=== PATIENT | female | born 1965 ===

== ENCOUNTER 2022-06-21 23:39 | Inpatient (IN) | payer OTHER, SELFPAY ==
[2022-06-22 00:09] VITALS: BP 119/88; PULSE 73; RESP 16; TEMP 36.6; O2SAT 95; BMI 24.1
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
--- NOTE | 2022-06-22 16:49 | HO.PM.IMCN ---
History of Present Illness Data of Consult Service Date: 06/22/22 Requesting physician: Abbie Israel Primary Care Provider: Unknown Physician HPI Reason for consult: medical H&P 57-year-old female with history of hypothyroidism, type 2 diabetes, GERD, and schizoaffective disorder admitted to Psychiatry with consult placed to hospitalist service for medical H and P. The patient is refusing to meet with me at this time Review of Systems Review of Systems: Unable to assess ROS as patient refusing to speak with provider [facility] Medical History Diabetes GERD (gastroesophageal reflux disease) HTN (hypertension) Hypothyroidism Schizoaffective disorder, bipolar type Urinary incontinence Social History Household Members: None Housing: House Do you presently have visiting nurse or other home services: No Patient Tobacco Use Status: Current everyday Tobacco user Tobacco use type: Cigarette Cigarette Packs Per Day: 1 Cigarettes Per Day: 20.0 Years Smoked: unknown Smoked in Last 30 Days: Yes e-Cigarette/Vaping Use: Currently Using Patient Interested in Nicotine Replacement: Yes Patient Given Instructions on How to Stop Smoking: Yes Date Education Initiated: 06/22/22 Second Hand Smoke Exposure: No Use of substances other than those prescribed or required for medical reasons: Unable to respond Currently Displaying Signs/Symptoms of Drug Intoxication Withdrawal: No Have you been hit, kicked, punched, or otherwise hurt by someone within the past year? If so, by whom?: No Do you feel safe in your current relationship?: No Current Relationship Is there a partner from a previous relationship who is making you feel unsafe now?: No Are you made to feel afraid or neglected: No Spiritual Healthcare Practices: N/A Nondenominational Healthcare Practices: N/A Cultural Healthcare Practices: N/A Advance Directives: No Advance Directives Information Provided: No Do you have thoughts of harming others: None Do you have a plan to hurt others: No Plan Recently lost weight without trying: No How much weight loss: Not applicable Eating poorly because of decreased appetite: No Nutrition screen score: 0 Nutrition Risks: No Nutritional Risk Patient : No : No Poor oral hygiene: No service: No Sexual orientation: Straight/Heterosexual Meds Allergies Allergy/AdvReac Type Severity Reaction Status Date / Time No Known Allergies Allergy Verified 06/22/22 00:08 Active Medications: Current Medications Acetaminophen (Acetaminophen 325 Mg Tablet) 650 mg PO Q6H PRN PRN Reason: Headache/Pain Mild Scale (1-3) Al Hydroxide/Mg Hydroxide (Magnesium Hydrox/Alum Hydrox 30 Ml Oral.Susp) 30 ml PO Q6H PRN PRN Reason: Heartburn/Nausea Amlodipine Besylate (Amlodipine Besylate 10 Mg Tablet) 10 mg PO DAILY [facility]; Protocol Aspirin (Aspirin Enteric Coated 81 Mg Tablet.) 81 mg PO DAILY [facility] Atorvastatin Calcium (Atorvastatin Calcium 20 Mg Tablet) 20 mg PO BEDTIME [facility] Docusate Sodium (Docusate Sodium 100 Mg Capsule) 100 mg PO BID [facility] Glucose (Glucose Gel 15 Gm Gel..Gram.) 15 gm PO Q15M PRN; Protocol PRN Reason: per Hypoglycemia Standing Ord. Hydroxyzine HCl (Hydroxyzine Hcl 25 Mg Tablet) 25 mg PO Q6H PRN PRN Reason: Anxiety Dextrose (D10) 250 mls @ 750 mls/hr IV Q15M PRN; Protocol PRN Reason: per Hypoglycemia Standing Ord. Insulin Human Lispro (Insulin Lispro 100 Unit/Ml 3 Ml Vial) 0 unit SUBCUT QIDACHS [facility]; Protocol Levothyroxine Sodium (Levothyroxine Sodium 50 Mcg Tablet) 50 mcg PO DAILY@0600 [facility] Lorazepam (Lorazepam 1 Mg Tablet) 1 mg PO Q4H PRN PRN Reason: sx of catatonia, agitation Magnesium Hydroxide (Milk Of Magnesia 30 Ml Oral.Susp) 30 ml PO DAILY PRN PRN Reason: Constipation Metformin HCl (Metformin Hcl 850 Mg Tablet) 850 mg PO BEDTIME [facility] Metoprolol Tartrate (Metoprolol Tartrate 12.5 Mg Halftab) 12.5 mg PO BID [facility]; Protocol Multivitamins/Vitamin C (Multivitamin Tablet) 1 tab PO DAILY [facility] Nicotine Polacrilex (Nicotine Polacrilex 2 Mg Gum) 4 mg BUCCAL Q2H PRN PRN Reason: Nicotine Cravings Olanzapine (Olanzapine 7.5 Mg Tablet) 15 mg PO BEDTIME [facility] Olanzapine (Olanzapine 5 Mg Tablet) 5 mg PO BID PRN PRN Reason: psychosis, agitation Omeprazole (Omeprazole 20 Mg Capsule.) 20 mg PO DAILY@0630 [facility] Trazodone HCl (Trazodone Hcl 50 Mg Tablet) 50 mg PO BEDTIME MRX1 PRN PRN Reason: Insomnia Home Medications Medication Instructions Recorded Confirmed Last Taken Type No Known Home Meds 06/22/22 06/22/22 Unknown History Physical Exam Vital Signs and Narrative: Vital Signs: Last Vital Signs Temp 97.8 F 06/22/22 00:09 Pulse 73 06/22/22 00:09 Resp 16 06/22/22 00:09 BP 119/88 06/22/22 00:09 Pulse Ox 95 06/22/22 00:09 O2 Del Method Room Air 06/22/22 00:09 BMI result Body Mass Index 24.1 Pt refusing to speak with provider or participate in exam Assessment and Plan (1) Routine medical exam: Status: Acute Plan 57-year-old female with history of hypothyroidism, type 2 diabetes, GERD, and schizoaffective disorder admitted to Psychiatry with consult placed to hospitalist service for medical H and P. The patient is refusing to meet with me at this time #Mood disorder -plan per psychiatry #Type 2 diabetes -POC glucose -assess Hgb A1c as ordered -humalog on sliding scale -continue po meds -diabetic diet #HTN- reasonably controlled -continue amlodipine -monitor bp #GERD -continue ppi Thank you for allowing me to participate in this consult. Signing off at this time. Please do not hesitate to call for further questions. Time Spent With Patient Time: Total time managing care of this patient today ____ minutes.
[2022-06-22] MEDS: Magnesium Hydrox/Alum Hydrox 30 ML ORAL.SUSP PO (20:38)
--- NOTE | 2022-06-22 20:49 | PC.NURSE ---
Pt refused 1630 and HS POC. Pt refused 1800 vital signs. Pt refused nighttime medications.
--- NOTE | 2022-06-23 08:13 | PC.NURSE ---
Pt refused AM labs as well as AM POC
--- NOTE | 2022-06-23 09:16 | PC.NURSE ---
Pt refused all medications and vital signs as well as assessments. MD andrade
--- NOTE | 2022-06-23 11:27 | PC.NURSE ---
Pt refused urine drug screen with TW.
--- NOTE | 2022-06-23 16:34 | PC.NURSE ---
pt refused POC
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
[2022-06-23] MEDS: Docusate Sodium 100 MG CAPSULE PO (19:42)
[2022-06-23] MEDS: OLANZapine 7.5 MG TABLET 15 MG PO (19:42)
[2022-06-23] MEDS: Atorvastatin Calcium 20 MG TABLET PO (19:43)
[2022-06-23] MEDS: metFORMIN HCl 850 MG TABLET PO (19:43)
--- NOTE | 2022-06-24 08:37 | PC.NURSE ---
PT refused lab draw - provider notified
--- NOTE | 2022-06-24 08:38 | PC.NURSE ---
PT refused AM POC
--- NOTE | 2022-06-24 09:13 | PC.NURSE ---
PT refused all morning meds, continues to be malodorous- refusing ADLs.
--- NOTE | 2022-06-24 10:03 | P.PNPSI_ITS ---
Subjective Subjective Date of Service: 06/24/22 Reason For Visit: Schizoaffective Subjective Notes: Section 7 Healthcare Proxy: No Guardianship: No Medical Problems Affecting Mental Status: No Interim History: Refusing of interventions. Dismissive when attempting to discuss her care, reports feeling disrespected if we attempt to gather history, discuss plan of care, so she may approach to d iscuss care at her discretion to decrease feelings of disrespect. Section VII filed as she is refusing. No JEFFERY allowed for collateral contacts. Hygiene is very poor. Pt is not allowed in the kitchen or in group due to her condition at this time. She is aware of this and is asked to shower and wash clothing. Assistance offered which she refuses. Per team report pt has a history of guardianship and Michel guardianship with [facility], however, this has lapsed. Pt reports no recall in signing conditional voluntary, thus Section VII. Medication Compliance: No Side effects from medications: No Attending Groups: No Review of Systems Acute medical concerns: No Medical Review of Systems: unchanged Mental Status Exam Mental Status Exam Patient Appearance: Fatigued, Disheveled and Unkempt Patient Orientation: Person Level of Consciousness: Awake and Alert Patient Behavior: Guarded, Suspicious, Fearful, Resistive to Care, Avoidant, Fatigued, Distractible, Isolative, Good Eye Contact and Uncooperative Mood Description: Hostile Affect Description: Hostile Patient Cognition Impaired: No Ability to Follow Directions: Poor Speech Pattern: Spontaneous Speech Memory Description: Remote Impaired and Episodic Impaired Delusions: Paranoid Ideation Perceptual Disturbances: Derealization Thought Process: Distracted and Rumination Thought Content: positive for Circumstantial, positive for Perseveration, positive for Poverty of Content and positive for Evasive Depressive Symptoms: Increased Irritability and Sleeping More Than Usual Abnormal Motor Activity Signs and Symptoms: Agitation Judgement: Poor Diagnostics Vital Signs (24Hr): BMI result Body Mass Index 24.1 Medications Medications Current Medications Acetaminophen (Acetaminophen 325 Mg Tablet) 650 mg PO Q6H PRN PRN Reason: Headache/Pain Mild Scale (1-3) Al Hydroxide/Mg Hydroxide (Magnesium Hydrox/Alum Hydrox 30 Ml Oral.Susp) 30 ml PO Q6H PRN PRN Reason: Heartburn/Nausea Last Admin: 06/22/22 20:38 Dose: 30 ml Amlodipine Besylate (Amlodipine Besylate 10 Mg Tablet) 10 mg PO DAILY [facility]; Protocol Last Admin: 06/24/22 09:13 Dose: Not Given Aspirin (Aspirin Enteric Coated 81 Mg Tablet.Dr) 81 mg PO DAILY [facility] [place] Last Admin: 06/24/22 09:13 Dose: Not Given Atorvastatin Calcium (Atorvastatin Calcium 20 Mg Tablet) 20 mg PO BEDTIME [facility] [place] Last Admin: 06/23/22 19:43 Dose: 20 mg Docusate Sodium (Docusate Sodium 100 Mg Capsule) 100 mg PO BID [facility] [place] Last Admin: 06/24/22 09:13 Dose: Not Given Glucose (Glucose Gel 15 Gm Gel..Gram.) 15 gm PO Q15M PRN; Protocol PRN Reason: per Hypoglycemia Standing Ord. Hydroxyzine HCl (Hydroxyzine Hcl 25 Mg Tablet) 25 mg PO Q6H PRN PRN Reason: Anxiety Dextrose (D10) 250 mls @ 750 mls/hr IV Q15M PRN; Protocol PRN Reason: per Hypoglycemia Standing Ord. Insulin Human Lispro (Insulin Lispro 100 Unit/Ml 3 Ml Vial) 0 unit SUBCUT QIDACHS [facility] [place]; Protocol Last Admin: 06/24/22 09:12 Dose: Not Given Levothyroxine Sodium (Levothyroxine Sodium 50 Mcg Tablet) 50 mcg PO DAILY@0600 [facility] Last Admin: 06/24/22 09:12 Dose: Not Given Lorazepam (Lorazepam 1 Mg Tablet) 1 mg PO Q4H PRN PRN Reason: sx of catatonia, agitation Magnesium Hydroxide (Milk Of Magnesia 30 Ml Oral.Susp) 30 ml PO DAILY PRN PRN Reason: Constipation Metformin HCl (Metformin Hcl 850 Mg Tablet) 850 mg PO BEDTIME [facility] [place] Last Admin: 06/23/22 19:43 Dose: 850 mg Metoprolol Tartrate (Metoprolol Tartrate 12.5 Mg Halftab) 12.5 mg PO BID [facility] [place]; Protocol Last Admin: 06/24/22 09:13 Dose: Not Given Multivitamins/Vitamin C (Multivitamin Tablet) 1 tab PO DAILY [facility] Last Admin: 06/24/22 09:13 Dose: Not Given Nicotine Polacrilex (Nicotine Polacrilex 2 Mg Gum) 4 mg BUCCAL Q2H PRN PRN Reason: Nicotine Cravings Olanzapine (Olanzapine 7.5 Mg Tablet) 15 mg PO BEDTIME [facility] Last Admin: 06/23/22 19:42 Dose: 15 mg Olanzapine (Olanzapine 5 Mg Tablet) 5 mg PO BID PRN PRN Reason: psychosis, agitation Omeprazole (Omeprazole 20 Mg Capsule.Dr) 20 mg PO DAILY@0630 [facility] Last Admin: 06/24/22 09:12 Dose: Not Given Trazodone HCl (Trazodone Hcl 50 Mg Tablet) 50 mg PO BEDTIME MRX1 PRN PRN Reason: Insomnia Allergies Allergies Allergy/AdvReac Type Severity Reaction Status Date / Time No Known Allergies Allergy Verified 06/22/22 00:08 Assessment & Plan Assessment & Plan (1) Schizoaffective disorder, bipolar type: Status: Acute Code(s): F25.0 - Schizoaffective disorder, bipolar type Assessment and Plan: 06/24/22: Section VII filed. Attempt alliance. Plan 57-year-old female with history of hypothyroidism, type 2 diabetes, GERD, and schizoaffective disorder admitted to Psychiatry with consult placed to hospitalist service for medical H and P. The patient is refusing to meet with me at this time #Mood disorder -plan per psychiatry #Type 2 diabetes -POC glucose -assess Hgb A1c as ordered -humalog on sliding scale -continue po meds -diabetic diet #HTN- reasonably controlled -continue amlodipine -monitor bp #GERD -continue ppi Thank you for allowing me to participate in this consult. Signing off at this time. Please do not hesitate to call for further questions. Informed Consent: does not understand and further education needed Reason for continued inpatient stay Substantial Risk for: rapid decompensation Time Spent With Patient Time: Total time managing care of this patient today ____ minutes.
--- NOTE | 2022-06-24 11:55 | P.PNPSI_ITS ---
Subjective Subjective Reason For Visit: Schizoaffective Diagnostics Vital Signs (24Hr): BMI result Body Mass Index 24.1 Medications Medications Current Medications Acetaminophen (Acetaminophen 325 Mg Tablet) 650 mg PO Q6H PRN PRN Reason: Headache/Pain Mild Scale (1-3) Al Hydroxide/Mg Hydroxide (Magnesium Hydrox/Alum Hydrox 30 Ml Oral.Susp) 30 ml PO Q6H PRN PRN Reason: Heartburn/Nausea Last Admin: 06/22/22 20:38 Dose: 30 ml Amlodipine Besylate (Amlodipine Besylate 10 Mg Tablet) 10 mg PO DAILY [facility]; Protocol Last Admin: 06/24/22 09:13 Dose: Not Given Aspirin (Aspirin Enteric Coated 81 Mg Tablet.Dr) 81 mg PO DAILY [facility] Last Admin: 06/24/22 09:13 Dose: Not Given Atorvastatin Calcium (Atorvastatin Calcium 20 Mg Tablet) 20 mg PO BEDTIME [facility] Last Admin: 06/23/22 19:43 Dose: 20 mg Docusate Sodium (Docusate Sodium 100 Mg Capsule) 100 mg PO BID [facility] Last Admin: 06/24/22 09:13 Dose: Not Given Glucose (Glucose Gel 15 Gm Gel..Gram.) 15 gm PO Q15M PRN; Protocol PRN Reason: per Hypoglycemia Standing Ord. Hydroxyzine HCl (Hydroxyzine Hcl 25 Mg Tablet) 25 mg PO Q6H PRN PRN Reason: Anxiety Dextrose (D10) 250 mls @ 750 mls/hr IV Q15M PRN; Protocol PRN Reason: per Hypoglycemia Standing Ord. Insulin Human Lispro (Insulin Lispro 100 Unit/Ml 3 Ml Vial) 0 unit SUBCUT QIDACHS [facility]; Protocol Last Admin: 06/24/22 09:12 Dose: Not Given Levothyroxine Sodium (Levothyroxine Sodium 50 Mcg Tablet) 50 mcg PO DAILY@0600 [facility] Last Admin: 06/24/22 09:12 Dose: Not Given Lorazepam (Lorazepam 1 Mg Tablet) 1 mg PO Q4H PRN PRN Reason: sx of catatonia, agitation Magnesium Hydroxide (Milk Of Magnesia 30 Ml Oral.Susp) 30 ml PO DAILY PRN PRN Reason: Constipation Metformin HCl (Metformin Hcl 850 Mg Tablet) 850 mg PO BEDTIME [facility] Last Admin: 06/23/22 19:43 Dose: 850 mg Metoprolol Tartrate (Metoprolol Tartrate 12.5 Mg Halftab) 12.5 mg PO BID [facility]; Protocol Last Admin: 06/24/22 09:13 Dose: Not Given Multivitamins/Vitamin C (Multivitamin Tablet) 1 tab PO DAILY [facility] Last Admin: 06/24/22 09:13 Dose: Not Given Nicotine Polacrilex (Nicotine Polacrilex 2 Mg Gum) 4 mg BUCCAL Q2H PRN PRN Reason: Nicotine Cravings Olanzapine (Olanzapine 7.5 Mg Tablet) 15 mg PO BEDTIME [facility] Last Admin: 06/23/22 19:42 Dose: 15 mg Olanzapine (Olanzapine 5 Mg Tablet) 5 mg PO BID PRN PRN Reason: psychosis, agitation Omeprazole (Omeprazole 20 Mg Capsule.Dr) 20 mg PO DAILY@0630 [facility] Last Admin: 06/24/22 09:12 Dose: Not Given Trazodone HCl (Trazodone Hcl 50 Mg Tablet) 50 mg PO BEDTIME MRX1 PRN PRN Reason: Insomnia Allergies Allergies Allergy/AdvReac Type Severity Reaction Status Date / Time No Known Allergies Allergy Verified 06/22/22 00:08 Assessment & Plan Assessment & Plan (1) Routine medical exam: Status: Acute Code(s): Z00.00 - Encounter for general adult medical examination without abnormal findings Plan 57-year-old female with history of hypothyroidism, type 2 diabetes, GERD, and schizoaffective disorder admitted to Psychiatry with consult placed to hospitalist service for medical H and P. The patient is refusing to meet with me at this time #Mood disorder -plan per psychiatry #Type 2 diabetes -POC glucose -assess Hgb A1c as ordered -humalog on sliding scale -continue po meds -diabetic diet #HTN- reasonably controlled -continue amlodipine -monitor bp #GERD -continue ppi Thank you for allowing me to participate in this consult. Signing off at this time. Please do not hesitate to call for further questions. Time Spent With Patient Time: Total time managing care of this patient today ____ minutes.
[2022-06-24] MEDS: Metoprolol Tartrate 12.5 MG HALFTAB PO (20:01)
[2022-06-24] MEDS: Docusate Sodium 100 MG CAPSULE PO (20:02)
[2022-06-24] MEDS: OLANZapine 7.5 MG TABLET 15 MG PO (20:02)
[2022-06-24] MEDS: metFORMIN HCl 850 MG TABLET PO (20:02)
[2022-06-24] MEDS: Atorvastatin Calcium 20 MG TABLET PO (20:05)
[2022-06-24] MEDS: traZODone HCL 50 MG TABLET PO (22:35)
[2022-06-25 06:00] VITALS: RESP 16
[2022-06-25] MEDS: Multivitamin TABLET 1 TAB PO (09:40)
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
[2022-06-25] MEDS: Metoprolol Tartrate 12.5 MG HALFTAB PO (20:16)
[2022-06-25] MEDS: LORazepam 1 MG TABLET PO (20:16)
[2022-06-25] MEDS: Atorvastatin Calcium 20 MG TABLET PO (20:16)
[2022-06-25] MEDS: metFORMIN HCl 850 MG TABLET PO (20:16)
[2022-06-25] MEDS: Docusate Sodium 100 MG CAPSULE PO (20:16)
[2022-06-25] MEDS: OLANZapine 7.5 MG TABLET 15 MG PO (20:16)
[2022-06-25 20:34] VITALS: RESP 16
--- NOTE | 2022-06-25 21:22 | PC.NURSE ---
PT refused POC at dinner time but did take evening medication when presented to her, continues to refuse ADLs.
[2022-06-26] MEDS: Levothyroxine Sodium 50 MCG TABLET PO (08:40)
[2022-06-26] MEDS: Multivitamin TABLET 1 TAB PO (08:40)
[2022-06-26] MEDS: Aspirin Enteric Coated 81 MG TABLET.DR PO (08:41)
[2022-06-26] MEDS: Docusate Sodium 100 MG CAPSULE PO ×2 (08:41→18:27)
[2022-06-26] MEDS: Omeprazole 20 MG CAPSULE.DR PO (08:41)
[2022-06-26 08:59] VITALS: RESP 16
--- NOTE | 2022-06-26 09:05 | PC.NURSE ---
Pt. refuses lab work
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
[2022-06-26] MEDS: OLANZapine 7.5 MG TABLET 15 MG PO (18:27)
[2022-06-26] MEDS: LORazepam 1 MG TABLET PO (18:28)
[2022-06-26] MEDS: metFORMIN HCl 850 MG TABLET PO (18:28)
[2022-06-26] MEDS: Atorvastatin Calcium 20 MG TABLET PO (18:28)
[2022-06-27] MEDS: Omeprazole 20 MG CAPSULE.DR PO (08:06)
[2022-06-27] MEDS: Docusate Sodium 100 MG CAPSULE PO ×2 (08:06→18:31)
[2022-06-27] MEDS: Aspirin Enteric Coated 81 MG TABLET.DR PO (08:06)
[2022-06-27] MEDS: Multivitamin TABLET 1 TAB PO (08:07)
[2022-06-27] MEDS: Levothyroxine Sodium 50 MCG TABLET PO (08:07)
[2022-06-27] MEDS: LORazepam 1 MG TABLET PO ×2 (08:07→18:31)
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
--- NOTE | 2022-06-27 14:52 | PC.NURSE ---
this chief writer set up the shower and strongly encouraged her to do so. she checked out the handcapped shower with this chief writer. showered. washed herself appropriately. bit more verbal. smiled afterwards. ate a snack in the kitchen.
[2022-06-27] MEDS: traZODone HCL 50 MG TABLET PO (18:31)
[2022-06-27] MEDS: Atorvastatin Calcium 20 MG TABLET PO (18:31)
[2022-06-27] MEDS: OLANZapine 7.5 MG TABLET 15 MG PO (18:31)
[2022-06-27] MEDS: metFORMIN HCl 850 MG TABLET PO (18:31)
[2022-06-28] MEDS: Levothyroxine Sodium 50 MCG TABLET PO (05:49)
[2022-06-28] MEDS: Omeprazole 20 MG CAPSULE.DR PO (05:50)
[2022-06-28 06:00] VITALS: RESP 16
[2022-06-28] MEDS: Docusate Sodium 100 MG CAPSULE PO ×2 (09:18→19:48)
[2022-06-28] MEDS: OLANZapine 5 MG TABLET PO (09:18)
[2022-06-28] MEDS: LORazepam 1 MG TABLET PO ×2 (09:18→19:49)
[2022-06-28] MEDS: Multivitamin TABLET 1 TAB PO (09:18)
[2022-06-28] MEDS: Aspirin Enteric Coated 81 MG TABLET.DR PO (09:18)
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
[2022-06-28] MEDS: Acetaminophen 325 MG TABLET 650 MG PO (11:38)
[2022-06-28 18:00] VITALS: RESP 16
[2022-06-28] MEDS: Atorvastatin Calcium 20 MG TABLET PO (19:48)
[2022-06-28] MEDS: metFORMIN HCl 850 MG TABLET PO (19:48)
[2022-06-28] MEDS: OLANZapine 7.5 MG TABLET 15 MG PO (19:49)
[2022-06-29] MEDS: LORazepam 1 MG TABLET PO (08:10)
[2022-06-29] MEDS: Aspirin Enteric Coated 81 MG TABLET.DR PO (08:10)
[2022-06-29] MEDS: OLANZapine 5 MG TABLET PO (08:10)
[2022-06-29] MEDS: Multivitamin TABLET 1 TAB PO (08:10)
[2022-06-29] MEDS: Levothyroxine Sodium 50 MCG TABLET PO (08:10)
[2022-06-29] MEDS: Docusate Sodium 100 MG CAPSULE PO (08:10)
[2022-06-29] MEDS: Omeprazole 20 MG CAPSULE.DR PO (08:10)
[2022-06-29 08:14] VITALS: RESP 15
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
--- NOTE | 2022-06-29 22:33 | PC.NURSE ---
Patient refused all HS medications, POC and vital signs to be taken.
[2022-06-30] MEDS: Levothyroxine Sodium 50 MCG TABLET PO (06:18)
[2022-06-30] MEDS: Omeprazole 20 MG CAPSULE.DR PO (06:18)
[2022-06-30] MEDS: Multivitamin TABLET 1 TAB PO (08:42)
[2022-06-30] MEDS: LORazepam 1 MG TABLET PO ×2 (08:42→18:12)
[2022-06-30] MEDS: Aspirin Enteric Coated 81 MG TABLET.DR PO (08:42)
[2022-06-30] MEDS: OLANZapine 5 MG TABLET PO (08:42)
[2022-06-30] MEDS: Docusate Sodium 100 MG CAPSULE PO ×2 (08:42→18:12)
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
[2022-06-30 15:42] VITALS: RESP 16
[2022-06-30] MEDS: Atorvastatin Calcium 20 MG TABLET PO (18:12)
[2022-06-30] MEDS: metFORMIN HCl 850 MG TABLET PO (18:12)
[2022-07-01] MEDS: Levothyroxine Sodium 50 MCG TABLET PO (04:14)
[2022-07-01] MEDS: Omeprazole 20 MG CAPSULE.DR PO (04:16)
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
[2022-07-01] MEDS: metFORMIN HCl 850 MG TABLET PO (18:18)
[2022-07-01] MEDS: LORazepam 1 MG TABLET PO (18:18)
[2022-07-01] MEDS: OLANZapine 10 MG TABLET 20 MG PO (18:18)
[2022-07-01] MEDS: Atorvastatin Calcium 20 MG TABLET PO (18:18)
[2022-07-01] MEDS: Docusate Sodium 100 MG CAPSULE PO (18:18)
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
--- NOTE | 2022-07-02 09:44 | PC.NURSE ---
PT refuse all AM meds, vital signs and POC today 07/02/22 as well as yesterday 07/01/22. Today states I cant take that, I have only one child I carried to term .
[2022-07-02] MEDS: Atorvastatin Calcium 20 MG TABLET PO (19:06)
[2022-07-02] MEDS: Docusate Sodium 100 MG CAPSULE PO (19:07)
[2022-07-02] MEDS: LORazepam 1 MG TABLET PO (19:07)
[2022-07-02] MEDS: OLANZapine 10 MG TABLET 20 MG PO (19:07)
[2022-07-02] MEDS: Metoprolol Tartrate 12.5 MG HALFTAB PO (19:07)
[2022-07-02] MEDS: metFORMIN HCl 850 MG TABLET PO (19:07)
--- NOTE | 2022-07-03 12:13 | PC.NURSE ---
PT REFUSED VS, POC AND ALL MORNING MEDS. PT INTERESTED in getting haircut, CAW MADE AWRE
--- NOTE | 2022-07-03 14:41 | PC.NURSE ---
PT refused labs 2X, will need to be reordered, CAW aware.
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
[2022-07-04] MEDS: Multivitamin TABLET 1 TAB PO (07:58)
[2022-07-04] MEDS: OLANZapine 5 MG TABLET PO (07:59)
[2022-07-04] MEDS: LORazepam 1 MG TABLET PO ×3 (07:59→20:00)
[2022-07-04] MEDS: Docusate Sodium 100 MG CAPSULE PO ×2 (07:59→20:00)
[2022-07-04] MEDS: Aspirin Enteric Coated 81 MG TABLET.DR PO (07:59)
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
--- NOTE | 2022-07-04 14:27 | PC.NURSE ---
pt refuses vital signs, insulin and poc. dr. billingsley aware.
[2022-07-04] MEDS: OLANZapine 10 MG TABLET 20 MG PO (20:00)
[2022-07-04] MEDS: Atorvastatin Calcium 20 MG TABLET PO (20:01)
[2022-07-04] MEDS: metFORMIN HCl 850 MG TABLET PO (20:01)
--- NOTE | 2022-07-05 11:59 | PC.NURSE ---
PT refused morning meds, POC, and vitals. PT was offered morning meds 3x, replied each time with Later . When this abstract writer approached for the final attempt pt stated you already gave them to me, get the fuck out of here . PT continues with bizarre paranoid behaviors often times staring at this abstract writer and not saying anything for a period of time.
[2022-07-05] MEDS: LORazepam 1 MG TABLET PO (14:41)
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
[2022-07-06] MEDS: Docusate Sodium 100 MG CAPSULE PO (08:06)
[2022-07-06] MEDS: OLANZapine 5 MG TABLET PO (08:06)
[2022-07-06] MEDS: LORazepam 1 MG TABLET PO (08:07)
[2022-07-06] MEDS: Aspirin Enteric Coated 81 MG TABLET.DR PO (08:07)
[2022-07-06] MEDS: Levothyroxine Sodium 50 MCG TABLET PO (08:07)
[2022-07-06] MEDS: Omeprazole 20 MG CAPSULE.DR PO (08:07)
[2022-07-06] MEDS: Multivitamin TABLET 1 TAB PO (08:07)
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
[2022-07-06 17:21] VITALS: BP 170/85; PULSE 95; TEMP 37; O2SAT 96
[2022-07-06] MEDS: Acetaminophen 325 MG TABLET 650 MG PO (20:29)
[2022-07-07] MEDS: Multivitamin TABLET 1 TAB PO (08:04)
[2022-07-07] MEDS: Levothyroxine Sodium 50 MCG TABLET PO (08:04)
[2022-07-07] MEDS: amLODIPine Besylate 10 MG TABLET PO (08:04)
[2022-07-07] MEDS: Omeprazole 20 MG CAPSULE.DR PO (08:04)
[2022-07-07] MEDS: Metoprolol Tartrate 12.5 MG HALFTAB PO ×2 (08:05→20:13)
[2022-07-07] MEDS: Aspirin Enteric Coated 81 MG TABLET.DR PO (08:05)
[2022-07-07] MEDS: Docusate Sodium 100 MG CAPSULE PO ×2 (08:05→20:13)
[2022-07-07] MEDS: LORazepam 1 MG TABLET PO ×3 (08:05→20:14)
[2022-07-07] MEDS: OLANZapine 5 MG TABLET PO (08:05)
[2022-07-07 08:12] VITALS: BP 145/79; PULSE 87; RESP 16; TEMP 36.4; O2SAT 96
--- NOTE | 2022-07-07 13:05 | PC.NURSE ---
pt refused to shower and do poc/insulin coverage.
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
[2022-07-07] MEDS: OLANZapine 10 MG TABLET 30 MG PO (20:13)
[2022-07-07] MEDS: Atorvastatin Calcium 20 MG TABLET PO (20:13)
[2022-07-07] MEDS: metFORMIN HCl 850 MG TABLET PO (20:14)
[2022-07-08] MEDS: amLODIPine Besylate 10 MG TABLET PO (08:12)
[2022-07-08] MEDS: Levothyroxine Sodium 50 MCG TABLET PO (08:12)
[2022-07-08] MEDS: Docusate Sodium 100 MG CAPSULE PO ×2 (08:12→19:34)
[2022-07-08] MEDS: Omeprazole 20 MG CAPSULE.DR PO (08:12)
[2022-07-08] MEDS: Metoprolol Tartrate 12.5 MG HALFTAB PO (08:12)
[2022-07-08] MEDS: LORazepam 1 MG TABLET PO ×3 (08:13→19:34)
[2022-07-08] MEDS: Magnesium Hydrox/Alum Hydrox 30 ML ORAL.SUSP PO (08:22)
[2022-07-08 08:34] VITALS: BP 139/80; PULSE 85; RESP 16; TEMP 37; O2SAT 93
[2022-07-08 09:30] LABS: Creatinine Clr Calc Pharmacy 91.5; Estimated Glomerular Filt Rate > 60
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
[2022-07-08] MEDS: OLANZapine 10 MG TABLET 30 MG PO (19:34)
[2022-07-08] MEDS: metFORMIN HCl 850 MG TABLET PO (19:34)
[2022-07-08] MEDS: Atorvastatin Calcium 20 MG TABLET PO (19:34)
[2022-07-09 06:00] VITALS: BP 138/67; PULSE 90; RESP 16; TEMP 36.6; O2SAT 95
[2022-07-09] MEDS: Docusate Sodium 100 MG CAPSULE PO ×2 (07:45→20:42)
[2022-07-09] MEDS: amLODIPine Besylate 10 MG TABLET PO (07:45)
[2022-07-09] MEDS: Levothyroxine Sodium 50 MCG TABLET PO (07:46)
[2022-07-09] MEDS: Omeprazole 20 MG CAPSULE.DR PO (07:46)
[2022-07-09] MEDS: Metoprolol Tartrate 12.5 MG HALFTAB PO (07:46)
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
[2022-07-09] MEDS: Atorvastatin Calcium 20 MG TABLET PO (20:41)
[2022-07-09] MEDS: OLANZapine 10 MG TABLET 30 MG PO (20:41)
[2022-07-09] MEDS: LORazepam 1 MG TABLET PO (20:42)
[2022-07-09] MEDS: metFORMIN HCl 850 MG TABLET PO (20:42)
[2022-07-10] MEDS: Omeprazole 20 MG CAPSULE.DR PO (08:20)
[2022-07-10] MEDS: Docusate Sodium 100 MG CAPSULE PO ×2 (08:20→18:10)
[2022-07-10] MEDS: Levothyroxine Sodium 50 MCG TABLET PO (08:22)
[2022-07-10] MEDS: OLANZapine 10 MG TABLET 30 MG PO (18:09)
[2022-07-10] MEDS: Atorvastatin Calcium 20 MG TABLET PO (18:10)
[2022-07-10] MEDS: LORazepam 0.5 MG TABLET PO (18:10)
[2022-07-10] MEDS: metFORMIN HCl 850 MG TABLET PO (18:10)
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
[2022-07-11 06:00] VITALS: RESP 16
[2022-07-11] MEDS: Levothyroxine Sodium 50 MCG TABLET PO (08:07)
[2022-07-11] MEDS: LORazepam 0.5 MG TABLET PO ×2 (08:07→20:00)
[2022-07-11] MEDS: Docusate Sodium 100 MG CAPSULE PO ×2 (08:07→20:00)
[2022-07-11] MEDS: Omeprazole 20 MG CAPSULE.DR PO (08:08)
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
[2022-07-11 17:13] VITALS: RESP 16; TEMP 36.9
[2022-07-11] MEDS: OLANZapine 10 MG TABLET 30 MG PO (20:00)
[2022-07-11] MEDS: Metoprolol Tartrate 12.5 MG HALFTAB PO (20:00)
[2022-07-11] MEDS: Atorvastatin Calcium 20 MG TABLET PO (20:00)
[2022-07-12 06:00] VITALS: RESP 16
[2022-07-12] MEDS: Docusate Sodium 100 MG CAPSULE PO ×2 (09:31→18:11)
[2022-07-12] MEDS: LORazepam 0.5 MG TABLET PO ×2 (09:32→18:11)
[2022-07-12] MEDS: Omeprazole 20 MG CAPSULE.DR PO (09:32)
[2022-07-12] MEDS: Levothyroxine Sodium 50 MCG TABLET PO (09:33)
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
[2022-07-12] MEDS: OLANZapine 5 MG TABLET 25 MG PO (18:10)
[2022-07-12] MEDS: metFORMIN HCl 850 MG TABLET PO (18:11)
[2022-07-12] MEDS: Atorvastatin Calcium 20 MG TABLET PO (18:11)
[2022-07-13] MEDS: Levothyroxine Sodium 50 MCG TABLET PO (05:23)
[2022-07-13] MEDS: Omeprazole 20 MG CAPSULE.DR PO (05:23)
[2022-07-13] MEDS: Docusate Sodium 100 MG CAPSULE PO ×2 (08:52→20:32)
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
[2022-07-13 18:20] LABS: Amphetamine Screen Urine Not Detected (Not Detect); Barbiturates, Urine Not Detected (Not Detect); Benzodiazepines Screen Urine Not Detected (Not Detect); Cannabinoid Screen Urine Not Detected (Not Detect); Cocaine Screen Urine Not Detected (Not Detect); Fentanyl, urine Not Detected (Not Detect); Opiate Screen Urine Not Detected (Not Detect); Phencyclidine Screen Urine Not Detected (Not Detect)
--- NOTE | 2022-07-13 18:48 | PC.NURSE ---
Patient's urine drug screen was collected and processed. Negative result. Shireen Benítez notified via Annabella text.
[2022-07-13] MEDS: OLANZapine 5 MG TABLET 25 MG PO (20:30)
[2022-07-13] MEDS: LORazepam 0.5 MG TABLET PO (20:30)
[2022-07-13] MEDS: metFORMIN HCl 850 MG TABLET PO (20:33)
[2022-07-14 06:00] VITALS: BP 141/89; PULSE 108; RESP 16; TEMP 36.3; O2SAT 93
[2022-07-14] MEDS: Metoprolol Tartrate 12.5 MG HALFTAB PO ×2 (08:16→19:49)
[2022-07-14] MEDS: amLODIPine Besylate 10 MG TABLET PO (08:17)
[2022-07-14] MEDS: LORazepam 0.5 MG TABLET PO ×2 (08:17→19:50)
[2022-07-14] MEDS: Docusate Sodium 100 MG CAPSULE PO ×2 (08:17→19:50)
[2022-07-14] MEDS: Levothyroxine Sodium 50 MCG TABLET PO (08:17)
[2022-07-14] MEDS: Omeprazole 20 MG CAPSULE.DR PO (08:17)
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
--- NOTE | 2022-07-14 14:26 | PC.NURSE ---
asked pt when she was going to let us test her blood sugar and she said never .
[2022-07-14] MEDS: OLANZapine 5 MG TABLET 25 MG PO (19:49)
[2022-07-14] MEDS: Atorvastatin Calcium 20 MG TABLET PO (19:50)
[2022-07-14] MEDS: metFORMIN HCl 850 MG TABLET PO (19:51)
[2022-07-15] MEDS: Omeprazole 20 MG CAPSULE.DR PO (08:10)
[2022-07-15] MEDS: Docusate Sodium 100 MG CAPSULE PO ×2 (08:10→20:00)
[2022-07-15] MEDS: Levothyroxine Sodium 50 MCG TABLET PO (08:10)
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
[2022-07-15] MEDS: OLANZapine 5 MG TABLET 25 MG PO (20:00)
[2022-07-15] MEDS: metFORMIN HCl 850 MG TABLET PO (20:00)
[2022-07-15] MEDS: Atorvastatin Calcium 20 MG TABLET PO (20:01)
[2022-07-16] MEDS: Levothyroxine Sodium 50 MCG TABLET PO (05:36)
[2022-07-16] MEDS: Omeprazole 20 MG CAPSULE.DR PO (05:36)
[2022-07-16] MEDS: Docusate Sodium 100 MG CAPSULE PO ×2 (08:42→20:44)
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
[2022-07-16 18:00] VITALS: BP 134/80; PULSE 91; RESP 18; TEMP 36.3; O2SAT 96
[2022-07-16] MEDS: metFORMIN HCl 850 MG TABLET PO (20:44)
[2022-07-16] MEDS: Atorvastatin Calcium 20 MG TABLET PO (20:44)
[2022-07-16] MEDS: OLANZapine 5 MG TABLET 25 MG PO (20:44)
[2022-07-17] MEDS: Omeprazole 20 MG CAPSULE.DR PO (08:36)
[2022-07-17] MEDS: Docusate Sodium 100 MG CAPSULE PO ×2 (08:36→20:43)
[2022-07-17] MEDS: Levothyroxine Sodium 50 MCG TABLET PO (08:37)
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
[2022-07-17] MEDS: Throat Lozenge, Medicated LOZENGE 1 LOZENGE MUCOUS MEM (13:25)
[2022-07-17] MEDS: Metoprolol Tartrate 12.5 MG HALFTAB PO (20:43)
[2022-07-17] MEDS: metFORMIN HCl 850 MG TABLET PO (20:43)
[2022-07-17] MEDS: OLANZapine 5 MG TABLET 25 MG PO (20:43)
[2022-07-17] MEDS: Atorvastatin Calcium 20 MG TABLET PO (20:44)
[2022-07-18] MEDS: Omeprazole 20 MG CAPSULE.DR PO (08:41)
[2022-07-18] MEDS: Docusate Sodium 100 MG CAPSULE PO ×2 (08:41→21:00)
[2022-07-18] MEDS: Levothyroxine Sodium 50 MCG TABLET PO (08:42)
--- NOTE | 2022-07-18 08:58 | PC.NURSE ---
Pt refused AM Creatinine labs
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
[2022-07-18 16:11] VITALS: RESP 16
[2022-07-18] MEDS: OLANZapine 10 MG TABLET 30 MG PO (21:00)
[2022-07-18] MEDS: metFORMIN HCl 850 MG TABLET PO (21:00)
[2022-07-18] MEDS: Atorvastatin Calcium 20 MG TABLET PO (21:00)
[2022-07-19] MEDS: Levothyroxine Sodium 50 MCG TABLET PO (05:07)
[2022-07-19] MEDS: Omeprazole 20 MG CAPSULE.DR PO (05:07)
[2022-07-19 08:45] VITALS: RESP 18
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
[2022-07-19] MEDS: Docusate Sodium 100 MG CAPSULE PO (19:47)
[2022-07-19] MEDS: OLANZapine 10 MG TABLET 30 MG PO (19:47)
[2022-07-19] MEDS: Atorvastatin Calcium 20 MG TABLET PO (19:47)
[2022-07-19] MEDS: metFORMIN HCl 850 MG TABLET PO (19:47)
[2022-07-20] MEDS: Levothyroxine Sodium 50 MCG TABLET PO (06:19)
[2022-07-20] MEDS: Omeprazole 20 MG CAPSULE.DR PO (06:19)
[2022-07-20 08:22] VITALS: RESP 16
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
[2022-07-20] MEDS: Metoprolol Tartrate 12.5 MG HALFTAB PO (19:20)
[2022-07-20] MEDS: metFORMIN HCl 850 MG TABLET PO (19:20)
[2022-07-20] MEDS: Docusate Sodium 100 MG CAPSULE PO (19:21)
[2022-07-20] MEDS: OLANZapine 10 MG TABLET 30 MG PO (19:21)
[2022-07-20] MEDS: Atorvastatin Calcium 20 MG TABLET PO (19:21)
[2022-07-21 07:00] VITALS: BMI 30.8
[2022-07-21] MEDS: Levothyroxine Sodium 50 MCG TABLET PO (08:34)
[2022-07-21] MEDS: Docusate Sodium 100 MG CAPSULE PO ×2 (08:34→19:21)
[2022-07-21] MEDS: Omeprazole 20 MG CAPSULE.DR PO (08:34)
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
--- NOTE | 2022-07-21 12:16 | PC.NURSE ---
Pt refused labs this AM. MD Werner made aware
[2022-07-21 16:52] VITALS: BP 136/82; PULSE 73; RESP 16; TEMP 36.4; O2SAT 97
[2022-07-21] MEDS: LORazepam 1 MG TABLET PO (19:20)
[2022-07-21] MEDS: Metoprolol Tartrate 12.5 MG HALFTAB PO (19:20)
[2022-07-21] MEDS: risperiDONE 1 MG TABLET PO (19:20)
[2022-07-21] MEDS: Atorvastatin Calcium 20 MG TABLET PO (19:21)
[2022-07-21] MEDS: OLANZapine 10 MG TABLET 30 MG PO (19:21)
[2022-07-21] MEDS: metFORMIN HCl 850 MG TABLET PO (19:21)
[2022-07-22] MEDS: Levothyroxine Sodium 50 MCG TABLET PO (08:18)
[2022-07-22] MEDS: Docusate Sodium 100 MG CAPSULE PO ×2 (08:18→19:38)
[2022-07-22] MEDS: risperiDONE 1 MG TABLET PO ×2 (08:18→19:39)
[2022-07-22] MEDS: Omeprazole 20 MG CAPSULE.DR PO (08:18)
[2022-07-22] MEDS: LORazepam 1 MG TABLET PO ×3 (08:19→19:38)
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
[2022-07-22 18:00] VITALS: BP 141/85; PULSE 96; RESP 16; TEMP 36; O2SAT 97
[2022-07-22] MEDS: Metoprolol Tartrate 12.5 MG HALFTAB PO (19:37)
[2022-07-22] MEDS: OLANZapine 10 MG TABLET 30 MG PO (19:38)
[2022-07-22] MEDS: metFORMIN HCl 850 MG TABLET PO (19:38)
[2022-07-22] MEDS: Atorvastatin Calcium 20 MG TABLET PO (19:38)
[2022-07-23] MEDS: Levothyroxine Sodium 50 MCG TABLET PO (06:37)
[2022-07-23] MEDS: Omeprazole 20 MG CAPSULE.DR PO (06:37)
--- NOTE | 2022-07-23 12:26 | PC.NURSE ---
When attempt made to medicate this morning, pt was initially agreeable to take them later. Currently when re-attempting to medicate pt refusing all of her meds. Otto returned to [facility] with witness Jin MORRIS.
[2022-07-23] MEDS: LORazepam 1 MG TABLET PO (12:36)
[2022-07-23] MEDS: risperiDONE 1 MG TABLET PO (12:36)
[2022-07-23] MEDS: Docusate Sodium 100 MG CAPSULE PO (12:37)
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
[2022-07-24] MEDS: Omeprazole 20 MG CAPSULE.DR PO (05:57)
[2022-07-24] MEDS: Levothyroxine Sodium 50 MCG TABLET PO (05:57)
[2022-07-24] MEDS: Metoprolol Tartrate 12.5 MG HALFTAB PO ×2 (09:00→18:24)
[2022-07-24] MEDS: risperiDONE 1 MG TABLET PO ×2 (09:00→18:24)
[2022-07-24] MEDS: LORazepam 1 MG TABLET PO ×2 (09:00→18:24)
[2022-07-24] MEDS: Docusate Sodium 100 MG CAPSULE PO ×2 (09:00→18:24)
[2022-07-24] MEDS: amLODIPine Besylate 10 MG TABLET PO (09:01)
[2022-07-24 09:03] VITALS: BP 144/93; PULSE 86; RESP 16; TEMP 36.4; O2SAT 94
[2022-07-24 15:51] VITALS: BP 121/68; PULSE 92
[2022-07-24 18:23] VITALS: BP 120/70; PULSE 86
[2022-07-24] MEDS: Atorvastatin Calcium 20 MG TABLET PO (18:24)
[2022-07-24] MEDS: metFORMIN HCl 850 MG TABLET PO (18:24)
[2022-07-24] MEDS: OLANZapine 10 MG TABLET 30 MG PO (18:24)
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
[2022-07-25] MEDS: Omeprazole 20 MG CAPSULE.DR PO (05:36)
[2022-07-25] MEDS: Levothyroxine Sodium 50 MCG TABLET PO (05:36)
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
[2022-07-25] MEDS: amLODIPine Besylate 10 MG TABLET PO (10:51)
[2022-07-25] MEDS: LORazepam 1 MG TABLET PO ×3 (10:54→20:30)
[2022-07-25] MEDS: Docusate Sodium 100 MG CAPSULE PO ×2 (10:54→20:31)
[2022-07-25] MEDS: risperiDONE 1 MG TABLET PO (10:55)
[2022-07-25] MEDS: Metoprolol Tartrate 12.5 MG HALFTAB PO ×2 (10:56→20:32)
[2022-07-25] MEDS: risperiDONE 2 MG TABLET PO (20:30)
[2022-07-25] MEDS: OLANZapine 10 MG TABLET 30 MG PO (20:30)
[2022-07-25] MEDS: Atorvastatin Calcium 20 MG TABLET PO (20:31)
[2022-07-25] MEDS: metFORMIN HCl 850 MG TABLET PO (20:31)
[2022-07-25 20:33] VITALS: BP 124/82; PULSE 88; TEMP 36.6; O2SAT 96
[2022-07-26] MEDS: Levothyroxine Sodium 50 MCG TABLET PO (05:23)
[2022-07-26] MEDS: Omeprazole 20 MG CAPSULE.DR PO (05:23)
[2022-07-26] MEDS: Docusate Sodium 100 MG CAPSULE PO ×2 (09:26→21:03)
[2022-07-26] MEDS: LORazepam 1 MG TABLET PO ×3 (09:26→21:04)
[2022-07-26] MEDS: amLODIPine Besylate 10 MG TABLET PO (09:26)
[2022-07-26] MEDS: risperiDONE 1 MG TABLET PO (09:26)
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
[2022-07-26 18:00] VITALS: BP 128/89; RESP 18; TEMP 36.6; O2SAT 96
[2022-07-26] MEDS: Atorvastatin Calcium 20 MG TABLET PO (21:03)
[2022-07-26] MEDS: OLANZapine 10 MG TABLET 30 MG PO (21:04)
[2022-07-26] MEDS: risperiDONE 2 MG TABLET PO (21:04)
[2022-07-26] MEDS: metFORMIN HCl 850 MG TABLET PO (21:04)
[2022-07-26] MEDS: Metoprolol Tartrate 12.5 MG HALFTAB PO (21:04)
[2022-07-27] MEDS: Levothyroxine Sodium 50 MCG TABLET PO (05:15)
[2022-07-27] MEDS: Omeprazole 20 MG CAPSULE.DR PO (05:15)
[2022-07-27 10:19] LABS: Creatinine Clr Calc Pharmacy 121.5; Estimated Glomerular Filt Rate > 60
[2022-07-27] MEDS: LORazepam 1 MG TABLET PO ×3 (12:59→20:24)
[2022-07-27] MEDS: Docusate Sodium 100 MG CAPSULE PO ×2 (12:59→20:24)
[2022-07-27] MEDS: risperiDONE 1 MG TABLET PO (13:00)
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
[2022-07-27 16:43] VITALS: RESP 16
[2022-07-27] MEDS: risperiDONE 2 MG TABLET PO (20:24)
[2022-07-27] MEDS: OLANZapine 10 MG TABLET 30 MG PO (20:24)
[2022-07-27] MEDS: metFORMIN HCl 850 MG TABLET PO (20:24)
[2022-07-27] MEDS: Atorvastatin Calcium 20 MG TABLET PO (20:24)
[2022-07-28] MEDS: Omeprazole 20 MG CAPSULE.DR PO (06:06)
[2022-07-28] MEDS: Levothyroxine Sodium 50 MCG TABLET PO (06:06)
--- NOTE | 2022-07-28 08:30 | PC.NURSE ---
patient sleeping in bed, able to be aroused to voice, patient verbalized annoyance at being aroused, refused vital signs, refused medications.
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
[2022-07-28 17:42] VITALS: RESP 16
[2022-07-28] MEDS: LORazepam 1 MG TABLET PO (20:50)
[2022-07-28] MEDS: OLANZapine 10 MG TABLET 30 MG PO (20:50)
[2022-07-28] MEDS: Atorvastatin Calcium 20 MG TABLET PO (20:50)
[2022-07-28] MEDS: risperiDONE 2 MG TABLET PO (20:51)
[2022-07-28] MEDS: Docusate Sodium 100 MG CAPSULE PO (20:51)
[2022-07-28] MEDS: metFORMIN HCl 850 MG TABLET PO (20:51)
[2022-07-29] MEDS: amLODIPine Besylate 10 MG TABLET PO (08:25)
[2022-07-29] MEDS: Docusate Sodium 100 MG CAPSULE PO ×2 (08:25→18:50)
[2022-07-29] MEDS: Levothyroxine Sodium 50 MCG TABLET PO (08:25)
[2022-07-29] MEDS: Omeprazole 20 MG CAPSULE.DR PO (08:25)
[2022-07-29] MEDS: risperiDONE 1 MG TABLET PO (08:25)
[2022-07-29] MEDS: Metoprolol Tartrate 12.5 MG HALFTAB PO ×2 (08:25→18:50)
[2022-07-29 08:30] VITALS: BP 131/71; PULSE 81; RESP 16; TEMP 36.5; O2SAT 93
[2022-07-29 16:16] VITALS: BP 141/74; PULSE 88; TEMP 36.1
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
[2022-07-29] MEDS: risperiDONE 2 MG TABLET PO (18:50)
[2022-07-29] MEDS: Atorvastatin Calcium 20 MG TABLET PO (18:50)
[2022-07-29] MEDS: metFORMIN HCl 850 MG TABLET PO (18:50)
[2022-07-29] MEDS: OLANZapine 10 MG TABLET 30 MG PO (18:50)
[2022-07-29] MEDS: LORazepam 1 MG TABLET PO (18:50)
[2022-07-30] MEDS: Omeprazole 20 MG CAPSULE.DR PO (05:52)
[2022-07-30] MEDS: Levothyroxine Sodium 50 MCG TABLET PO (05:52)
[2022-07-30 08:25] VITALS: RESP 18
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
[2022-07-30] MEDS: risperiDONE 1 MG TABLET PO (12:00)
[2022-07-30] MEDS: LORazepam 1 MG TABLET PO ×2 (12:00→19:45)
[2022-07-30] MEDS: Docusate Sodium 100 MG CAPSULE PO ×2 (12:03→19:46)
[2022-07-30 18:00] VITALS: BP 147/88; PULSE 105; RESP 18; TEMP 35.9; O2SAT 93
[2022-07-30] MEDS: metFORMIN HCl 850 MG TABLET PO (19:46)
[2022-07-30] MEDS: risperiDONE 2 MG TABLET PO (19:46)
[2022-07-30] MEDS: OLANZapine 10 MG TABLET 30 MG PO (19:46)
[2022-07-30] MEDS: Atorvastatin Calcium 20 MG TABLET PO (19:46)
[2022-07-31] MEDS: Levothyroxine Sodium 50 MCG TABLET PO (06:16)
[2022-07-31] MEDS: Omeprazole 20 MG CAPSULE.DR PO (06:29)
[2022-07-31 10:34] VITALS: PULSE 94; RESP 16; TEMP 36.3; O2SAT 96
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
[2022-07-31] MEDS: LORazepam 1 MG TABLET PO ×2 (12:11→21:50)
[2022-07-31] MEDS: risperiDONE 1 MG TABLET PO (12:11)
[2022-07-31] MEDS: Docusate Sodium 100 MG CAPSULE PO ×2 (12:11→21:50)
[2022-07-31 18:00] VITALS: RESP 16
[2022-07-31] MEDS: Atorvastatin Calcium 20 MG TABLET PO (21:49)
[2022-07-31] MEDS: risperiDONE 2 MG TABLET PO (21:50)
[2022-07-31] MEDS: OLANZapine 10 MG TABLET 30 MG PO (21:50)
[2022-07-31] MEDS: metFORMIN HCl 850 MG TABLET PO (21:50)
[2022-08-01] MEDS: Omeprazole 20 MG CAPSULE.DR PO (05:22)
[2022-08-01] MEDS: Levothyroxine Sodium 50 MCG TABLET PO (05:22)
[2022-08-01] MEDS: Docusate Sodium 100 MG CAPSULE PO ×2 (08:34→21:07)
[2022-08-01] MEDS: risperiDONE 1 MG TABLET PO (08:35)
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
[2022-08-01] MEDS: risperiDONE 2 MG TABLET PO (21:07)
[2022-08-01] MEDS: OLANZapine 10 MG TABLET 30 MG PO (21:07)
[2022-08-01] MEDS: Atorvastatin Calcium 20 MG TABLET PO (21:07)
[2022-08-01] MEDS: LORazepam 1 MG TABLET PO (21:07)
[2022-08-01] MEDS: metFORMIN HCl 850 MG TABLET PO (21:07)
[2022-08-02] MEDS: Levothyroxine Sodium 50 MCG TABLET PO (05:35)
[2022-08-02] MEDS: Omeprazole 20 MG CAPSULE.DR PO (05:35)
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
[2022-08-02] MEDS: risperiDONE 1 MG TABLET PO (14:08)
[2022-08-02] MEDS: Throat Lozenge, Medicated LOZENGE 1 LOZENGE MUCOUS MEM (14:08)
[2022-08-02] MEDS: Atorvastatin Calcium 20 MG TABLET PO ×2 (14:08→19:17)
[2022-08-02] MEDS: LORazepam 1 MG TABLET PO (19:17)
[2022-08-02] MEDS: Docusate Sodium 100 MG CAPSULE PO (19:17)
[2022-08-02] MEDS: risperiDONE 2 MG TABLET PO (19:17)
[2022-08-02] MEDS: OLANZapine 10 MG TABLET 30 MG PO (19:17)
[2022-08-02] MEDS: metFORMIN HCl 850 MG TABLET PO (19:17)
[2022-08-02] MEDS: Metoprolol Tartrate 12.5 MG HALFTAB PO (19:17)
[2022-08-02 19:22] VITALS: BP 148/80; PULSE 95
--- NOTE | 2022-08-03 | ECG_ITS ---
Test Reason : qtc Blood Pressure : / mmHG Vent. Rate : 088 BPM Atrial Rate : 088 BPM P-R Int : 180 ms QRS Dur : 088 ms QT Int : 376 ms P-R-T Axes : 071 045 075 degrees QTc Int : 454 ms Normal sinus rhythm Normal ECG No previous ECGs available Referred By: Abbie Israel Electronically Signed By:JAYRO ENCARNACION
[2022-08-03] MEDS: Levothyroxine Sodium 50 MCG TABLET PO (06:44)
[2022-08-03] MEDS: Omeprazole 20 MG CAPSULE.DR PO (06:44)
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
[2022-08-03] MEDS: Docusate Sodium 100 MG CAPSULE PO ×2 (10:36→21:02)
[2022-08-03] MEDS: LORazepam 1 MG TABLET PO ×3 (10:36→21:01)
[2022-08-03] MEDS: risperiDONE 1 MG TABLET PO (10:36)
[2022-08-03] MEDS: Metoprolol Tartrate 12.5 MG HALFTAB PO ×2 (10:39→21:01)
[2022-08-03] MEDS: amLODIPine Besylate 10 MG TABLET PO (10:39)
[2022-08-03 10:42] VITALS: BP 139/90; PULSE 101; RESP 18; TEMP 36.8; O2SAT 97
[2022-08-03 18:00] VITALS: BP 132/86; PULSE 96; RESP 16; TEMP 36.4; O2SAT 97
[2022-08-03] MEDS: metFORMIN HCl 850 MG TABLET PO (21:01)
[2022-08-03] MEDS: OLANZapine 10 MG TABLET 30 MG PO (21:01)
[2022-08-03] MEDS: risperiDONE 2 MG TABLET PO (21:01)
[2022-08-03] MEDS: Atorvastatin Calcium 20 MG TABLET PO (21:02)
[2022-08-04] MEDS: Omeprazole 20 MG CAPSULE.DR PO ×2 (06:30→06:31)
[2022-08-04] MEDS: Levothyroxine Sodium 50 MCG TABLET PO (06:32)
[2022-08-04] MEDS: Metoprolol Tartrate 12.5 MG HALFTAB PO ×2 (08:15→19:05)
[2022-08-04] MEDS: Docusate Sodium 100 MG CAPSULE PO ×2 (08:15→19:06)
[2022-08-04] MEDS: risperiDONE 1 MG TABLET PO (08:15)
[2022-08-04] MEDS: amLODIPine Besylate 10 MG TABLET PO (08:15)
[2022-08-04 08:32] VITALS: BP 123/67; PULSE 92; RESP 16; TEMP 36.4; O2SAT 96
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
[2022-08-04] MEDS: LORazepam 1 MG TABLET PO ×2 (14:04→19:06)
[2022-08-04 19:05] VITALS: BP 140/86; PULSE 94
[2022-08-04] MEDS: OLANZapine 10 MG TABLET 30 MG PO (19:05)
[2022-08-04] MEDS: metFORMIN HCl 850 MG TABLET PO (19:06)
[2022-08-04] MEDS: Atorvastatin Calcium 20 MG TABLET PO (19:06)
[2022-08-04] MEDS: risperiDONE 2 MG TABLET PO (19:06)
[2022-08-05 06:00] VITALS: BP 145/74; PULSE 88; RESP 16; TEMP 36.8; O2SAT 91
[2022-08-05] MEDS: Levothyroxine Sodium 50 MCG TABLET PO (08:22)
[2022-08-05] MEDS: Docusate Sodium 100 MG CAPSULE PO ×2 (08:22→21:02)
[2022-08-05] MEDS: Metoprolol Tartrate 12.5 MG HALFTAB PO (08:23)
[2022-08-05] MEDS: Omeprazole 20 MG CAPSULE.DR PO (08:24)
[2022-08-05] MEDS: amLODIPine Besylate 10 MG TABLET PO (08:25)
[2022-08-05] MEDS: risperiDONE 1 MG TABLET PO (08:26)
[2022-08-05 12:09] VITALS: PULSE 82; O2SAT 98
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
[2022-08-05] MEDS: LORazepam 1 MG TABLET PO ×2 (14:33→21:01)
[2022-08-05 18:00] VITALS: RESP 16
[2022-08-05] MEDS: OLANZapine 10 MG TABLET 30 MG PO (21:00)
[2022-08-05] MEDS: risperiDONE 2 MG TABLET PO (21:01)
[2022-08-05] MEDS: metFORMIN HCl 850 MG TABLET PO (21:01)
[2022-08-05] MEDS: Atorvastatin Calcium 20 MG TABLET PO (21:03)
[2022-08-05] MEDS: Benztropine Mesylate 1 MG TABLET PO (21:03)
[2022-08-06] MEDS: Levothyroxine Sodium 50 MCG TABLET PO (06:01)
[2022-08-06] MEDS: Omeprazole 20 MG CAPSULE.DR PO (06:01)
[2022-08-06] MEDS: LORazepam 1 MG TABLET PO (10:04)
[2022-08-06] MEDS: risperiDONE 1 MG TABLET PO (10:04)
[2022-08-06] MEDS: Docusate Sodium 100 MG CAPSULE PO ×2 (10:04→18:34)
[2022-08-06] MEDS: amLODIPine Besylate 10 MG TABLET PO (10:04)
[2022-08-06] MEDS: Benztropine Mesylate 1 MG TABLET PO ×2 (10:04→18:34)
[2022-08-06] MEDS: Metoprolol Tartrate 12.5 MG HALFTAB PO ×2 (10:04→18:34)
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
[2022-08-06 18:32] VITALS: BP 119/66; PULSE 89
[2022-08-06] MEDS: risperiDONE 2 MG TABLET PO (18:34)
[2022-08-06] MEDS: metFORMIN HCl 850 MG TABLET PO (18:34)
[2022-08-06] MEDS: Atorvastatin Calcium 20 MG TABLET PO (18:34)
[2022-08-06] MEDS: OLANZapine 10 MG TABLET 30 MG PO (18:34)
[2022-08-07] MEDS: Omeprazole 20 MG CAPSULE.DR PO (05:37)
[2022-08-07] MEDS: Levothyroxine Sodium 50 MCG TABLET PO (05:37)
[2022-08-07] MEDS: Benztropine Mesylate 1 MG TABLET PO ×2 (08:35→18:28)
[2022-08-07] MEDS: amLODIPine Besylate 10 MG TABLET PO (08:35)
[2022-08-07] MEDS: Docusate Sodium 100 MG CAPSULE PO ×2 (08:35→18:28)
[2022-08-07] MEDS: LORazepam 1 MG TABLET PO ×2 (08:35→18:28)
[2022-08-07] MEDS: Metoprolol Tartrate 12.5 MG HALFTAB PO ×2 (08:36→18:28)
[2022-08-07] MEDS: risperiDONE 1 MG TABLET PO (08:36)
[2022-08-07 18:26] VITALS: BP 134/67; PULSE 99
[2022-08-07] MEDS: risperiDONE 2 MG TABLET PO (18:28)
[2022-08-07] MEDS: metFORMIN HCl 850 MG TABLET PO (18:28)
[2022-08-07] MEDS: Atorvastatin Calcium 20 MG TABLET PO (18:28)
[2022-08-07] MEDS: OLANZapine 10 MG TABLET 30 MG PO (18:51)
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
[2022-08-08] MEDS: Omeprazole 20 MG CAPSULE.DR PO (05:51)
[2022-08-08] MEDS: Levothyroxine Sodium 50 MCG TABLET PO (05:52)
[2022-08-08] MEDS: LORazepam 1 MG TABLET PO ×2 (13:08→20:28)
[2022-08-08] MEDS: risperiDONE 1 MG TABLET PO (13:08)
[2022-08-08] MEDS: Benztropine Mesylate 1 MG TABLET PO ×2 (13:08→20:28)
[2022-08-08] MEDS: Docusate Sodium 100 MG CAPSULE PO ×2 (13:08→20:27)
[2022-08-08 16:13] VITALS: RESP 16
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
[2022-08-08] MEDS: metFORMIN HCl 850 MG TABLET PO (20:28)
[2022-08-08] MEDS: risperiDONE 2 MG TABLET PO (20:28)
[2022-08-08] MEDS: Atorvastatin Calcium 20 MG TABLET PO (20:28)
[2022-08-08] MEDS: OLANZapine 10 MG TABLET 30 MG PO (20:29)
[2022-08-09 09:45] VITALS: BP 124/59; PULSE 72; RESP 16; TEMP 36.2; O2SAT 96
[2022-08-09] MEDS: Omeprazole 20 MG CAPSULE.DR PO (09:56)
[2022-08-09] MEDS: risperiDONE 1 MG TABLET PO (09:56)
[2022-08-09] MEDS: Levothyroxine Sodium 50 MCG TABLET PO (09:56)
[2022-08-09] MEDS: Docusate Sodium 100 MG CAPSULE PO ×2 (09:56→21:20)
[2022-08-09] MEDS: LORazepam 1 MG TABLET PO ×3 (09:56→21:20)
[2022-08-09] MEDS: Metoprolol Tartrate 12.5 MG HALFTAB PO (09:56)
[2022-08-09] MEDS: Benztropine Mesylate 1 MG TABLET PO ×2 (09:56→21:20)
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
[2022-08-09 18:00] VITALS: RESP 16
[2022-08-09] MEDS: risperiDONE 2 MG TABLET PO (21:20)
[2022-08-09] MEDS: Atorvastatin Calcium 20 MG TABLET PO (21:20)
[2022-08-09] MEDS: metFORMIN HCl 850 MG TABLET PO (21:20)
[2022-08-09] MEDS: OLANZapine 10 MG TABLET 30 MG PO (21:21)
[2022-08-10] MEDS: Benztropine Mesylate 1 MG TABLET PO ×2 (08:04→20:43)
[2022-08-10] MEDS: Omeprazole 20 MG CAPSULE.DR PO (08:04)
[2022-08-10] MEDS: Docusate Sodium 100 MG CAPSULE PO ×2 (08:04→20:43)
[2022-08-10] MEDS: LORazepam 1 MG TABLET PO ×3 (08:05→20:43)
[2022-08-10] MEDS: risperiDONE 1 MG TABLET PO (08:05)
[2022-08-10] MEDS: Levothyroxine Sodium 50 MCG TABLET PO (08:05)
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
[2022-08-10 18:00] VITALS: RESP 16
[2022-08-10] MEDS: Atorvastatin Calcium 20 MG TABLET PO (20:44)
[2022-08-10] MEDS: risperiDONE 2 MG TABLET PO (20:44)
[2022-08-10] MEDS: OLANZapine 10 MG TABLET 30 MG PO (20:44)
[2022-08-10] MEDS: metFORMIN HCl 850 MG TABLET PO (20:44)
[2022-08-11] MEDS: Omeprazole 20 MG CAPSULE.DR PO (08:42)
[2022-08-11] MEDS: Docusate Sodium 100 MG CAPSULE PO (08:42)
[2022-08-11] MEDS: LORazepam 1 MG TABLET PO ×2 (08:42→14:28)
[2022-08-11] MEDS: Levothyroxine Sodium 50 MCG TABLET PO (08:42)
[2022-08-11] MEDS: Metoprolol Tartrate 12.5 MG HALFTAB PO (08:43)
[2022-08-11] MEDS: amLODIPine Besylate 10 MG TABLET PO (08:43)
[2022-08-11] MEDS: risperiDONE 1 MG TABLET PO (08:43)
[2022-08-11] MEDS: Benztropine Mesylate 1 MG TABLET PO (08:43)
[2022-08-11 09:04] VITALS: BP 133/76; PULSE 102; O2SAT 97
[2022-08-11 09:35] LABS: Creatinine Clr Calc Pharmacy 111.8; Estimated Glomerular Filt Rate > 60
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
== END 2022-08-11 14:30 | disposition home or self-care (01) | DRG 885 ==
PROVIDERS: Physician Assistant; Psychiatry & Neurology Psychiatry; Admitting Provider Psychiatry & Neurology Psychiatry; Visit Provider Clinical Nurse Specialist Psychiatric/Mental Health, Adult
DX: F25.0 Schizoaffective disorder, bipolar type (principal); K21.9 Gastro-esophageal reflux disease without esophagitis; E03.9 Hypothyroidism, unspecified; I10 Essential (primary) hypertension; F17.210 Nicotine dependence, cigarettes, uncomplicated; Z71.6 Tobacco abuse counseling; Z79.84 Long term (current) use of oral hypoglycemic drugs; Z79.890 Hormone replacement therapy; Z79.899 Other long term (current) drug therapy
CPT/HCPCS: 36415; 80307; 82565; 93005

== ENCOUNTER → 2022-06-21 23:39 | Outpatient (BNV) | payer OTHER, SELFPAY | PROVIDERS: Admitting Provider Psychiatry & Neurology Psychiatry; Visit Provider Clinical Nurse Specialist Psychiatric/Mental Health, Adult | DX: F25.0 Schizoaffective disorder, bipolar type (principal) | CPT/HCPCS: 90792; 99231; 99232; 99239 ==